=== PATIENT | female | born 1950 | race Caucasian/White ===

== ENCOUNTER → 2021-03-04 | Outpatient (CLI) | payer OTHER, BC | LOC: SJCVC 10:09 | PROVIDERS: ATTEND Internal Medicine Cardiovascular Disease | DX: I47.1 Supraventricular tachycardia (principal); R00.2 Palpitations; I34.0 Nonrheumatic mitral (valve) insufficiency; E78.5 Hyperlipidemia, unspecified; E55.9 Vitamin D deficiency, unspecified; Z88.5 Allergy status to narcotic agent; Z88.1 Allergy status to other antibiotic agents; Z88.8 Allergy status to other drugs, medicaments and biological substances; N30.20 Other chronic cystitis without hematuria; Z98.890 Other specified postprocedural states ==

== ENCOUNTER → 2021-05-13 | Outpatient (CLI) | payer OTHER, BC | LOC: SJCVCIMAG 07:58 | PROVIDERS: ATTEND Internal Medicine Cardiovascular Disease | DX: I34.0 Nonrheumatic mitral (valve) insufficiency (principal); I47.1 Supraventricular tachycardia; R00.2 Palpitations; E78.5 Hyperlipidemia, unspecified; F41.9 Anxiety disorder, unspecified; Z88.2 Allergy status to sulfonamides; Z88.5 Allergy status to narcotic agent; Z88.8 Allergy status to other drugs, medicaments and biological substances; Z79.899 Other long term (current) drug therapy; Z72.89 Other problems related to lifestyle; Z82.49 Family history of ischemic heart disease and other diseases of the circulatory system ==